=== PATIENT | male | born 1995 | race Caucasian/White ===

== ENCOUNTER 2017-11-15 08:37 | Emergency (ER) | payer OTHER ==
[~2017-11-15] VITALS: Ht 185.4 cm; Wt 94.3 kg
[~2017-11-15 08:37] MED LIST: VENTAER INH; ZITH500T PO
[2017-11-15 08:44] VITALS: BP 148/80; PULSE 74; RESP 16; TEMP 98.6; O2SAT 100
--- NOTE | 2017-11-15 09:42 | RADRPT ---
EXAM DATE/TIME: 11/15/2017 09:29 [place] COMPARISON: No previous studies available for comparison. INDICATIONS : Left lateral ankle pain & swelling after jumping over a fence yesterday. MEDICAL HISTORY : Renal calculi. SURGICAL HISTORY : Appendectomy. ENCOUNTER: Initial ACUITY: 2 days PAIN SCORE: 7/10 LOCATION: Left lateral ankle FINDINGS: Two view exam was performed of the left ankle. The bony structures are in normal alignment. No evid ence of fracture, dislocation, or soft tissue swelling. No radiopaque foreign bodies are seen. Bony mineralization is normal. CONCLUSION: Unremarkable limited examination of the left ankle. Jay Dean MD on November 15, 2017 at 9:39 Board Certified Radiologist. This report was verified electronically.
--- NOTE | 2017-11-15 09:50 | PD ---
HPI Chief Complaint: Injury Time Seen by Provider: 09:04 Travel History International Travel<30 days: No Contact w/Intl Traveler<30days: No Traveled to known affect area: No History of Present Illness HPI 22-year-old male here with left ankle pain 1 day. He reports while at work yesterday customer's dog ran after him causing him to twist his ankle. He now has constant, throbbing pain localized to the lateral aspect of the ankle which is worse with weightbearing slightly relieved with rest. Symptom severity is moderate. Denies any other injuries. There is no head injury or loss of consciousness. Denies altered sensation or weakness of the foot. PFSH Past Medical History Hx Anticoagulant Therapy: No ADHD: Yes Weight (Kg): 3 Cancer: No Cardiovascular Problems: No Chemotherapy: No Cerebrovascular Accident: No Diabetes: No Diminished Hearing: No Endocrine: No Gastrointestinal Disorders: No Genitourinary: Yes Headaches: No Implanted Vascular Access Dvce: No Kidney Stones: Yes Musculoskeletal: Yes Neurologic: No Psychiatric: No Reproductive: No Respiratory: No Immunizations Current: Yes Migraines: Yes Seizures: No Thyroid Disease: No Ulcer: No Tetanus Vaccination: > 5 Years Influenza Vaccination: No Past Surgical History Appendectomy: Yes Section: No Cholecystectomy: No Hysterectomy: No Other Surgery: Yes (2003-APPENDECTOMY) Social History Alcohol Use: Yes (SOCIALLY) Tobacco Use: Yes (1 ppd ) Substance Use: No Allergies-Medications (Allergen,Severity, Reaction): Coded Allergies: diatrizoate meglumine (Unverified Allergy, Severe, THROAT ITCHES, 11/15/17) gadobenic acid (Unverified Allergy, Severe, THROAT ITCHES, 11/15/17) gadodiamide (Unverified Allergy, Severe, THROAT ITCHES, 11/15/17) gadoteridol (Unverified Allergy, Severe, THROAT ITCHES, 11/15/17) iodixanol (Unverified Allergy, Severe, THROAT ITCHES, 11/15/17) iohexol (Unverified Allergy, Severe, THROAT ITCHES, 11/15/17) Uncoded Allergies: LITTLE BLACK FLIES (Adverse Reaction, Unknown, HE SWELLS UP IF BITTEN., ) . Reported Meds & Prescriptions Reported Meds & Active Scripts Active No Active Prescriptions or Reported Medications Review of Systems Except as stated in HPI: all other systems reviewed are Neg General / Constitutional: No: Fever Eyes: No: Visual changes HENT: No: Headaches Cardiovascular: No: Chest Pain or Discomfort Respiratory: No: Shortness of Breath Gastrointestinal: No: Abdominal Pain Genitourinary: No: Dysuria Physical Exam Narrative GENERAL: Alert and well-appearing 22-year-old male SKIN: Warm and dry. HEAD: Normocephalic. Atraumatic EYES: No scleral icterus. No injection or drainage. NECK: Supple. No cervical midline tenderness CARDIOVASCULAR: Regular rate and rhythm. No rib pain or tenderness RESPIRATORY: Breath sounds equal bilaterally. No accessory muscle use. GASTROINTESTINAL: Abdomen soft, non-tender, nondistended. MUSCULOSKELETAL: No cyanosis. LLE: +ttp and mild swelling to the lateral malleolus. No obvious deformity. 2+ DP pulse. Can freely wiggle the toes. The ankle is stable. Normal sensation. Brisk cap refill Data Data Last Documented VS Vital Signs Date Time Temp Pulse Resp B/P (MAP) Pulse Ox O2 Delivery O2 Flow Rate FiO2 11/15/17 08:44 98.6 74 16 148/80 (102) 100 Orders Orders Ankle, Limited (Ap&Lat) (11/15/17 ) Ice/Cold Pack (11/15/17 08:53) MDM Medical Decision Making Medical Screen Exam Complete: Yes Emergency Medical Condition: Yes Differential Diagnosis Ankle sprain versus ankle fracture versus contusion Narrative Course 22-year-old male here with ankle pain after twisting injury. The extremity is neurovascularly intact. X-rays negative for fracture. He will be treated for ankle sprain. Diagnosis Primary Impression: Ankle sprain Qualified Codes: S93.402A - Sprain of unspecified ligament of left ankle, initial encounter Referrals: Primary Care Physician Departure Forms: Tests/Procedures Additional Instructions: Rush wrap as directed. Ice and elevate the extremity. Tylenol and ibuprofen for pain. Scripts No Active Prescriptions or Reported Meds Disposition: 01 DISCHARGE HOME Condition: Stable Mariana Galeano Nov 15, 2017 09:50
== END 2017-11-15 10:02 | disposition home or self-care (01) ==
LOC: PHEFT 08:37
DX: S93.402A Sprain of unspecified ligament of left ankle, initial encounter (principal); F90.9 Attention-deficit hyperactivity disorder, unspecified type; F17.200 Nicotine dependence, unspecified, uncomplicated; X50.1XXA Overexertion from prolonged static or awkward postures, initial encounter; Y93.02 Activity, running; Y99.0 Civilian activity done for income or pay; Z87.442 Personal history of urinary calculi; Z88.8 Allergy status to other drugs, medicaments and biological substances
CPT/HCPCS: 73600; 99283